=== PATIENT | male | born 1985 | race Two or more races ===

== ENCOUNTER 2017-06-18 18:09 | Emergency (ER) | payer SELFPAY ==
--- NOTE | 2017-06-18 19:13 | EDPHY ---
H & P Stated Complaint: bleeding from rectum and also when urinating started yesterday Time Seen by Provider: 06/18/17 19:09 HPI/ROS: CHIEF COMPLAINT: Rectal bleeding, hematuria HISTORY OF PRESENT ILLNESS: The patient is a Monegasque-speaking 32 y/o male with a history of ulcers (diagnosed by endoscopy but not treated with medication) arriving with his family complaining of bright red rectal bleeding and hematuria onset yesterday. This is associated with dysuria, urinary hesitancy, and difficulty emptying his bladder during urination. He has noticed clots in the toilet. His last normal bowel movement was yesterday morning. He then had subsequent constipation and later while at work he suddenly felt wetness in his underwear and saw bright red blood upon going to the bathroom--this is described as rectal bleeding by him. He also has left-sided abdominal pain, lightheadedness, and headache that began at the same time as the bleeding. He took 2 pills of ibuprofen for his headache yesterday. He takes a regular strength aspirin daily. He has never had symptoms like this before. He denies hemorrhoids, constipation, straining at stool, fever, cough or cold, vomiting, diarrhea, chest pain, dyspnea, recent trauma, recent illness. Curb Machine Operator at bedside assisted with history and all encounters. REVIEW OF SYSTEMS: A ten point review of systems was performed and is negative with the exception of the items mentioned in the HPI. Past medical history: 1. Ulcers - no medication, diagnosed by endoscopy 8-9 months ago in [place] Past surgical history: Denies Family history: Noncontributory Social history: Family at bedside. Monegasque-speaking. Daily cigarette smoker 4-5/ day. No alcohol for the last year. 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 General Appearance: Alert. Vital signs reviewed. Eyes: Pupils equal and round, no conjunctival injection, no discharge. Anicteric. ENT, Mouth: Mucous membranes are moist, no oropharyngeal erythema or edema. Neck: No lymphadenopathy, supple. Respiratory: Lungs are clear to auscultation; no wheezes, rales, or rhonchi. Cardiovascular: Regular rate and rhythm; no murmur, rub, or gallop. Gastrointestinal: Abdomen is soft, diffuse tenderness, no guarding, no masses or organomegaly, bowel sounds normal. Rectal: Brown stool, no visible hemorrhoids Skin: Warm and dry, no rashes on exposed skin, normal color. Back: Nontender to palpation over the thoracolumbar spine. No CVAT. Extremities: No lower extremity edema, no calf tenderness or swelling. Neurological: Alert and oriented. Moving all four extremities easily and equally. Psychiatric: Normal affect. - Personal History Current Tetanus/Diphtheria Vaccine: Yes Current Tetanus Diphtheria and Acellular Pertussis (TDAP): Yes Tetanus Vaccine Date: < 10 years - Medical/Surgical History Hx Asthma: No Hx Chronic Respiratory Disease: No Hx Diabetes: No Hx Cardiac Disease: Yes Hx Renal Disease: No Hx Cirrhosis: No Hx Alcoholism: No Hx HIV/AIDS: No Hx Splenectomy or Spleen Trauma: No Other PMH: heart issues - Social History Smoking Status: Current every day smoker Constitutional: Initial Vital Signs Temperature (C) 37 C 06/18/17 18:12 Heart Rate 103 H 06/18/17 18:12 Respiratory Rate 20 06/18/17 18:12 Blood Pressure 149/86 H 06/18/17 18:12 O2 Sat (%) 95 06/18/17 18:12 O2 Delivery Mode Room Air Allergies/Adverse Reactions: No Known Allergies Allergy (Unverified 06/18/17 18:11) Home Medications: Medication Instructions Recorded Omeprazole Magnesium [Prilosec] 10 mg PO DAILY #15 suspdr.pkt 06/18/17 Medical Decision Making ED Course/Re-evaluation: This is a normally healthy 32 y/o male with known ulcers who presents with a one -day history of rectal bleeding and hematuria with associated abdominal pain. He has diffuse mild abdominal tenderness on exam. Rectal exam does not reveal obvious cause for his symptoms--no hemorrhoids, brown stool on glove. Plan for IV, labs, occult stool testing, UA, and symptom management. 1L IV NS, 40mg IV Protonix, and 100mcg IV Fentanyl ordered. 2104: Reassessed patient and discussed work up. His headache has improved, but he continues to have abdominal pain and has been unable to urinate due to the pain. On reexamination he continues with diffuse abdominal pain, slightly worse in the lower quadrants. I do not suspect cholecystitis or pancreatitis, based upon his symptoms and abdominal exam. He last urinated around 16:30 and this was the last time he passed blood. We will perform a bedside bladder scan. His labs are unremarkable and his stool sample is negative for blood. He confirms he does not use iron or other supplements and has never had black stools. He does not recall anything in his diet that might change the color of his stools. I've recommended follow up with GI this week for further evaluation of what he perceives as rectal bleeding. We discussed the possibility of this being internal hemorrhoids. He described left-sided abdominal pain but is pain seems to be diffuse, although worse in the lower quadrants, on exam. Diverticulitis is a possibility. His white blood cell count is normal and he is not febrile. We also discussed the possibility of this all being hematuria, rather than rectal bleeding PLUS hematuria. Hemoglobin and hematocrit are normal--no evidence of serious blood loss. 2200: Reassessed patient. He continues to complain of abdominal pain. On reexamination his abdomen remains soft with diffuse tenderness and no guarding. I do not suspect appendicitis. I have not found evidence of urinary tract infection on UA. He was able to empty his bladder. I do not think this is ureterolithiasis (there is no hematuria on UA and no flank). He tells me that it is difficult for him to initiate urinary stream and painful when he does so. However, on bladder scan his bladder was empty. Again, I do not find evidence of UTI on urinalysis. His prostate did not feel enlarged at the time of my exam and I do not think that this is prostatitis. Overall, it is a somewhat confusing presentation. However, I have not found evidence of a surgical or life-threatening process. I am recommending an acid blocking medication, follow up with GI, and follow up with his primary care physician. We reviewed the danger signs that should prompt him to be re-evaluated immediately. If he continues with abdominal pain I recommend that he be re-evaluated tomorrow and re-examined. He was initially tachycardic but this resolved prior to discharge. He did remain hypertensive during his stay in the emergency department and has been advised to have this followed up with his primary care physician. - Data Points Laboratory Results: Laboratory Results 06/18/17 19:10 06/18/17 19:10 Medications Given: Discontinued Medications Hydrocodone Bitart/Acetaminophen (Victor 5/325mg Prepack#6) 1 btl TAKEHOME EDNOW ONE Stop: 06/18/17 22:40 Last Admin: 06/18/17 22:49 Dose: 1 btl Fentanyl (Sublimaze) 100 mcg IVP EDNOW ONE Stop: 06/18/17 20:11 Last Admin: 06/18/17 20:17 Dose: 100 mcg Hydromorphone HCl (Dilaudid) 0.5 mg IVP EDNOW ONE Stop: 06/18/17 21:55 Last Admin: 06/18/17 21:58 Dose: 0.5 mg Sodium Chloride (Ns) 1,000 mls @ 0 mls/hr IV ONCE ONE PRN Reason: Wide Open Stop: 06/18/17 19:52 Last Admin: 06/18/17 19:55 Dose: 1,000 mls Pantoprazole Sodium (Protonix) 40 mg IVP EDNOW ONE Stop: 06/19/17 20:11 Last Admin: 06/18/17 20:17 Dose: 40 mg Departure - Departure Disposition: Home, Routine, Self-Care Clinical Impression: Abdominal pain Qualifiers: Abdominal location: generalized Qualified Code(s): R10.84 - Generalized abdominal pain Condition: Good Instructions: Abdominal Pain (ED) Additional Instructions: 1. Follow up with wire rigger this week for evaluation of your rectal bleeding. I recommend calling first thing tomorrow morning to schedule this appointment. 2. Return to the ED for severe pain, diarrhea, more bleeding, lightheadedness, fainting, uncontrollable vomiting, fever, or other worsening of condition. 1. Marian seguimiento con un grastroenterologo esta semena por el sangrado del recto. Recomiendo llamar en la maana para hacer esta neela. 2. Regrese a la rebeca de emergencia si tiene dolor sapphire, diarrea, mas sangrado , si siente la delmar muy ligera, si se desmaya, vomito incontrolable, fiebre o otra condicion peor. Referrals: Rafael De Souza MD, FACG [Medical Doctor] - As per Instructions [facility] [place] [Outside] - As per Instructions Prescriptions: Omeprazole Magnesium [Prilosec] 10 mg PO DAILY #15 [email or web address].pkt Print Language: Monegasque Report Scribed for: Bessy Kapadia Report Scribed by: Xin Mello Date of Report: 06/18/17 Time of Report: 19:30 Physician Review and Approval Statement: 06/18/17 22:39 Portions of this note were transcribed by the medical staff director. I, Dr. Bessy Kapadia, personally performed the history, physical exam, and medical decision- making; and confirmed the accuracy of the information in the transcribed note.
[2017-06-18 19:45] LABS: PLATELET COUNT 195 10^3/uL (150-400)
[2017-06-18] MEDS ORDERED: NS 1,000 ML IV ONE (19:51)
[2017-06-18] MEDS ORDERED: fentaNYL 100 MCG/2 ML INJ IVP ONE (20:10)
[2017-06-18] MEDS ORDERED: PANTOPRAZOLE SODIUM 40 MG VIAL ONE (20:12)
[2017-06-18] MEDS ORDERED: HYDROmorphONE/DILAUDID 1 MG/ML INJ IVP ONE (21:54)
[2017-06-18] MEDS ORDERED: HYDROmorphONE/DILAUDID 2 MG/ML INJ ONE (21:55)
[2017-06-18] MEDS ORDERED: HYDROCOD/APAP 5/325 PREPACK#6 BTL TAKEHOME ONE (22:39)
[2017-06-18 23:01] VITALS: BP 130/83
[2017-06-19] MEDS ORDERED: PANTOPRAZOLE SODIUM 40 MG VIAL IVP ONE (20:10)
== END 2017-06-18 23:01 | disposition home or self-care (01) ==
DX: R10.84 Generalized abdominal pain (principal); F17.200 Nicotine dependence, unspecified, uncomplicated
CPT/HCPCS: 96374; J1170; J3010